=== PATIENT | male | born 1955 | race Caucasian/White ===

== ENCOUNTER 2023-01-06 10:55 | Day surgery (SDC) | payer OTHER ==
[2023-01-06 11:05] LABS: Absolute Lymphocytes (CBC) 2.8 K/uL (0.7-4.9); Hematocrit 37.5 % (39.6-49.0); MCV 86.8 fL (80-100); MPV 7.7 fL (7.6-11.3); RBC Red Blood Cell Count 4.33 M/uL (4.33-5.43)
[2023-01-06 11:13] LABS: Potassium 4.2 mEq/L (3.5-5.1)
[2023-01-06] MEDS ORDERED: Ringers Lactate 1,000 ML IV ONE (11:27)
[2023-01-06] MEDS ORDERED: CEFAZOLIN SODIUM 1 GM/VIAL ONE (11:32)
--- NOTE | 2023-01-06 12:04 | RAD REPORT ---
EXAM DESCRIPTION: [facility] Lat (2 Views)01/06/2023 10:56 am CLINICAL HISTORY: Pre op pending cyst removal. Hypertension COMPARISON: No comparisons TECHNIQUE: PA and lateral views of the chest. FINDINGS: The lungs are clear. No pneumothorax or effusion. The cardiomediastinal contours are unrem arkable. IMPRESSION: No acute cardiopulmonary process.
[2023-01-06] MEDS ORDERED: propofoL 200 MG/20 ML VIAL IV ONE (12:33)
[2023-01-06] MEDS ORDERED: FENTANYL CITR 100 MCG/2 ML ONE (12:34)
[2023-01-06] MEDS ORDERED: ONDANSETRON 4 MG/2 ML VIAL ONE (12:34)
[2023-01-06] MEDS ORDERED: MIDAZOLAM HCL 2 MG/2 ML INJ ONE (12:34)
[2023-01-06] MEDS ORDERED: LIDOCAINE 2% MPF 5 ML VIAL ONE (12:34)
[2023-01-06] MEDS ORDERED: dexAMETHasone 10 MG/ML VIAL ONE (13:04)
[2023-01-06] MEDS ORDERED: KETOROLAC 30 MG/ML INJ ONE (13:50)
[2023-01-06] MEDS ORDERED: BACITRACIN OINTMENT 14 GM TUBE TOP ONE (14:00)
[2023-01-06 14:52] VITALS: BP 133/74; TEMP 96.8; O2SAT 18
--- NOTE | 2023-01-06 14:54 | P.BOP ---
Preoperative diagnosis: tender sub mass face, right arm, upper back Postoperative diagnosis: same Primary procedure: Excisional biopsy subQ mass 1. Right face Secondary procedure: 2. right upper arm, 3. Right upper back , 4. left upper back Estimated blood loss: <10cc Specimen: masses x 4 Findings: as above Anesthesia: General Complications: None Transferred to: Recovery Room Condition: Good
== END 2023-01-06 15:08 | disposition home or self-care (01) ==
LOC: OR 10:55
PROVIDERS: ATTEND Surgery
PROC: 0HB1XZZ Excision of Face Skin, External Approach (ICD-10-PCS; 2023-01-06)
PROC: 0HBBXZZ Excision of Right Upper Arm Skin, External Approach (ICD-10-PCS; 2023-01-06)
PROC: 0HB6XZZ Excision of Back Skin, External Approach (ICD-10-PCS; 2023-01-06)
PROC: 0HB6XZZ Excision of Back Skin, External Approach (ICD-10-PCS; principal; 2023-01-06 13:00)
DX: L72.9 Follicular cyst of the skin and subcutaneous tissue, unspecified (principal); R22.2 Localized swelling, mass and lump, trunk; R22.31 Localized swelling, mass and lump, right upper limb; R22.0 Localized swelling, mass and lump, head
CPT/HCPCS: 11442; 11402 ×2; 11401; 85025; 80048; 36415; 88304; 71046; J2704; J2001; J2250; J3010; J1100; J2405; J7120; J0690